=== PATIENT | male | born 1990 | race Caucasian/White ===

== ENCOUNTER → 2019-09-01 | Outpatient (CLI) | payer OTHER ==
[2019-09-01 10:28] LABS: BASOPHILS % (AUTO) 0 % (0-10); EOSINOPHILS % (AUTO) 1 % (0-10); HEMATOCRIT 42 % (40-54); HEMOGLOBIN 15.1 G/DL (13.3-17.7); LYMPHOCYTES # (AUTO) 2.9 X 10^3 (1.0-4.0); LYMPHOCYTES % (AUTO) 53 % (12-44); MEAN CORPUSCULAR HEMOGLOBIN 28 PG (25-34); MEAN CORPUSCULAR HGB CONC 36 G/DL (32-36); MEAN CORPUSCULAR VOLUME 80 FL (80-99); MEAN PLATELET VOLUME 10.4 FL (7.4-10.4); MONOCYTES # (AUTO) 0.4 X 10^3 (0.0-1.0); MONOCYTES % (AUTO) 7 % (0-12); NEUTROPHILS # (AUTO) 2.2 X 10^3 (1.8-7.8); NEUTROPHILS % (AUTO) 40 % (42-75); PLATELET COUNT 240 10^3/uL (130-400); RED CELL DISTRIBUTION WIDTH 14.6 % (10.0-14.5); WHITE BLOOD COUNT 5.5 10^3/uL (4.3-11.0)
[2019-09-01 10:46] LABS: ALANINE AMINOTRANSFERASE 29 U/L (0-55); ALBUMIN 4.4 GM/DL (3.2-4.5); ALKALINE PHOSPHATASE 70 U/L (40-136); BILIRUBIN,TOTAL 0.5 MG/DL (0.1-1.0); BUN/CREATININE RATIO 16; CALCIUM 9.6 MG/DL (8.5-10.1); CARBON DIOXIDE 19 MMOL/L (21-32); CHLORIDE 105 MMOL/L (98-107); CREATININE SERUM 0.82 MG/DL (0.60-1.30); GFR ESTIMATED > 60; GLUCOSE 98 MG/DL (70-105); POTASSIUM 4.3 MMOL/L (3.6-5.0); SODIUM 137 MMOL/L (135-145); TOTAL PROTEIN 7.4 GM/DL (6.4-8.2)
[2019-09-01 22:35] LABS: HEPATITIS C ANTIBODY C Non-Reactive (Non-Reactive)
== END ==
LOC: LAB 10:00
PROVIDERS: ATTEND Physician Assistant
DX: L40.0 Psoriasis vulgaris (principal); Z79.899 Other long term (current) drug therapy
CPT/HCPCS: 36415; 80053; 80074; 85025; 86480

== ENCOUNTER → 2020-02-29 | Outpatient (CLI) | payer OTHER | LOC: LAB 16:46 | PROVIDERS: ATTEND Physician Assistant | DX: L40.0 Psoriasis vulgaris (principal) | CPT/HCPCS: 36415; 86431 ==

== ENCOUNTER 2020-03-08 14:10 | Emergency (ER) | payer OTHER ==
[~2020-03-08] VITALS: Ht 175 cm; Wt 134.0 kg
--- NOTE | 2020-03-08 14:44 | ED Upper Extremity ---
General Stated Complaint: L HAND LAC Source: patient Exam Limitations: no limitations History of Present Illness Date Seen by Provider: Mar 08, 2020 Time Seen by Provider: 14:41 Initial Comments Patient got his left hand caught in the roller of a heavy gate just prior to arrival. He injured his hand thumb and index finger. No other trauma. Allergies and Home Medications Allergies Coded Allergies: Penicillins (Verified Allergy, Severe, SWELLING, 03/08/20) Patient Home Medication List Home Medication List Reviewed: Yes Review of Systems Constitutional: no symptoms reported Respiratory: no symptoms reported Cardiovascular: no symptoms reported Musculoskeletal: see HPI Skin: see HPI Past Ufcqjjf-Ubxvzs-Gjwdxs Hx Patient Social History Recent Foreign Travel: No Contact w/Someone Who Travel: No Physical Exam Vital Signs Vital Signs - First Documented 03/08/20 14:35 Temp 37.0 Pulse 111 Resp 16 B/P (MAP) 169/78 (108) Pulse Ox 98 O2 Delivery Room Air Capillary Refill : Height, Weight, BMI Height: '" Weight: lbs. oz. kg; BMI Method: General Appearance: WD/WN, no apparent distress Neck: supple Cardiovascular: regular rate, rhythm Respiratory: normal breath sounds Hand: Left (there is tenderness and swelling along the course of the index finger. There is a 1.5 similar laceration over the fat pad of the left index finger. There is tenderness over the distal phalanx of the left thumb. There is 100 percent subungual hematoma left thumb. Also tender over his second metacarpal) Neurologic/Psychiatric: alert, normal mood/affect Skin: normal color, warm/dry Procedures/Interventions Wound Location: Upper Extremities Other Wound Location Fat-pad left index finger Wound Length (cm): 2 Wound's Depth, Shape: sub Q Wound Explored: clean Betadine Prep?: Yes Anesthesia: 1% Lidocaine Volume Anesthetic (ccs): 5 Suture: Ethlion Suture Size: 5-0 Number of Sutures: 3 Sterile Dressing Applied?: Yes Nail Trepanation : Nail Trepanation Location: left thumb Method of Drainage: nail cauterized Sterile Dressing Applied: Yes Finger Splint: No Progress/Results/Core Measures Results/Orders My Orders Orders - JOSE CRUZ STACY MD Hand, Left, 3 Views (03/08/20 14:39) Ibuprofen Tablet (Motrin Tablet) (03/08/20 14:45) Lidocaine 1% Inj 20 Ml (Xylocaine 1% Inj (03/08/20 15:16) Medications Given in ED Current Medications Medications Dose Ordered Sig/Maliha Route Start Time Stop Time Status Last Admin Dose Admin Ibuprofen 800 mg ONCE ONCE PO 03/08/20 14:45 03/08/20 14:46 DC 03/08/20 14:47 800 MG Vital Signs/I&O 03/08/20 14:35 Temp 37.0 Pulse 111 Resp 16 B/P (MAP) 169/78 (108) Pulse Ox 98 O2 Delivery Room Air Departure Impression Primary Impression: Laceration of left index finger Additional Impressions: Subungual hematoma of left thumb Contusion of left hand Disposition: HOME, SELF-CARE Condition: Stable Departure-Patient Inst. Decision time for Depature: 15:50 Referrals: NO,LOCAL PHYSICIAN (PCP/Family) Primary Care Physician Patient Instructions: Bruising Under the Nail, Laceration Repair Add. Discharge Instructions: Tylenol or ibuprofen for pain. Keep hand elevated. Wear splint for comfort. Sutures out in 10-14 days JOSE CRUZ STACY MD Mar 08, 2020 14:43
[2020-03-08] MEDS ORDERED: IBUPROFEN 800 MG (MOTRIN) TAB PO ONE (14:45)
--- NOTE | 2020-03-08 15:00 | NUR ---
SEE DR RODRIGUEZ CHARTING FOR WOUND DESCRIPTION.
--- NOTE | 2020-03-08 15:00 | Diagnostic Imaging Report ---
HISTORY: Trauma to the left hand. TECHNIQUE: Three views of the left hand. COMPARISON: Wrist radiographs from 06/16/2005. FINDINGS: No acute fracture or dislocation is seen in the left hand. Alignment appears normal. Joint spaces are preserved. No radiopaque foreign body is seen. IMPRESSION: No acute osseous abnormality is seen in the left hand. Dictated by: Dictated on workstation # [id number]
[2020-03-08] MEDS ORDERED: LIDOCAINE 1% INJ 20 ML 20 ML VIAL ONE (15:16)
[2020-03-08 16:05] VITALS: BP 152/80
[2020-03-08] MEDS ORDERED: LIDOCAINE 1% INJ 20 ML 20 ML VIAL INJ ONE (16:15)
--- OUTSIDE RECORDS SUMMARY | 2020-03-08 17:10 | XMS REPORT ---
Author LOGAN Greenwood Organization Unknown Address Unknown Phone Unavailable Care Team Providers Care Shearer Screen Measurer And Trimmer Name Role Phone [facility] PP Unavailable Reason For Visit Chief Complaint R63.5 Social History Functional Status Vital Signs Results Problems Encounter Diagnosis No relevant problems exist. Encounters Encounter Diagnosis No relevant problems exist. Plan of Care Procedures * Completed , on 10/31/2010 12:00 AM Immunizations No immunizations administered or ordered. Hospital Course Hospital Discharge Instructions Allergies, Adverse Reactions, Alerts This section is community engagement representative of the current allergy information, at the time o f the CCD generation. In the case of regeneration of the CCD, the allergy inform ation may not reflect the state of known allergies at the time of the CCD's subj ect visit. * Penicillins causes unspecified. * Latex Allergy has not been assessed. * IV Contrast Allergy has not been assessed. Medication Medication reconciliation has not been performed.
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
--- OUTSIDE RECORDS SUMMARY | 2020-03-08 17:10 | XMS REPORT ---
Author LOGAN Greenwood Organization Unknown Address Unknown Phone Unavailable Care Team Providers Care Doctor Of Nursing Practice Name Role Phone [facility] PP Unavailable Reason For Visit Chief Complaint HIGH BP, CHEST PRESSURE Social History Functional Status Vital Signs Results Chemistry from 10/19/2017 11:41 PMSODIUM 138 MMOL/L (136-145 MMOL/L) POTASSIUM 3.6 MMOL/L (3.5-5.1 MMOL/L) CHLORIDE 102 MMOL/L (98-107 MMOL/L) TCO2 26.2 MMOL/L (21.0-32.0 MMOL/L) *ANION GAP 9.8 MMOL/L (8.0-16.0 MMOL/L) BUN 18 MG/DL (7-18 MG/DL) CREATININE 1.02 MG/DL (0.70-1.30 MG/DL) *BUN/CREATININE RATIO 17.6 H (9.1-17.0 ) GLUCOSE 129 MG/DL H (65-99 MG/DL) *GFR EST NON AFR MAURITIAN >90 ML/MIN (Reference Range: not available) *GFR EST AFR AMER >90 ML/MIN (Reference Range: not available) CALCIUM 9.2 MG/DL (8.5-10.1 MG/DL) BILIRUBIN TOTAL 0.30 MG/DL (0.20-1.00 MG/DL) TOTAL PROTEIN 7.7 GM/DL (6.4-8.2 GM/DL) ALBUMIN 4.0 GM/DL (3.4-5.0 GM/DL) *GLOBULIN 3.7 GM/DL H (2.3-3.5 GM/DL) *A/G RATIO 1.1 L (1.5-2.2 ) ALK PHOS 79 U/L (46-116 U/L) ALT (SGPT) 42 U/L (14-59 U/L) AST (SGOT) 26 U/L (15-37 U/L) TROPONIN-I <0.017 NG/ML (0.000-0.056 NG/ML) Hematology from 10/19/2017 11:41 PMWBC 7.8 X10e3/UL (3.6-11.2 X10e3/UL) RBC 5.49 X10e6/UL (4.06-5.63 X10e6/UL) HEMOGLOBIN 14.9 G/DL (12.5-16.3 G/DL) HEMATOCRIT 44.6 % (36.7-47.1 %) *MCV 81.3 FL (80.0-100.0 FL) *MCH 27.1 PG (27.0-33.0 PG) *MCHC 33.4 G/DL (32.0-36.0 G/DL) *RDW 14.2 % (12.3-17.0 %) PLATELET 270 X10e3/UL (159-386 X10e3/UL) *MPV 8.7 FL (7.4-10.4 FL) AUTOMATED DIFF PERFORMED (Reference Range: not available) SEGS 42.5 % (Reference Range: not available) *LYMPHOCYTES 50.1 % (Reference Range: not available) *MONOCYTES 5.7 % (Reference Range: not available) *EOSINOPHILS 0.8 % (Reference Range: not available) *BASOPHILS 0.9 % (Reference Range: not available) *ABSOLUTE NEUTROPHILS 3.30 X10e3/UL (1.80-7.80 X10e3/UL) *ABSOLUTE LYMPHOCYTES 3.90 X10e3/UL H (1.00-3.00 X10e3/UL) *ABSOLUTE MONOCYTES 0.40 X10e3/UL (0.30-1.00 X10e3/UL) *ABSOLUTE EOSINOPHILS 0.10 X10e3/UL (0.00-0.50 X10e3/UL) *ABSOLUTE BASOPHILS 0.10 X10e3/UL (0.00-0.20 X10e3/UL) Coagulation from 10/19/2017 11:43 PMD-DIMER 0.23 MG/L FEU (0.00-0.50 MG/L FEU) DX Radiology from 10/19/2017 11:23 PMCHEST 1 VIEW History: chest hpain Priors: None. Findings: The cardiac silhouette and pulmonary vasculature are within normal limits. There are no acute infiltrates or effusions. Impression: No acute cardiopulmonary disease. Electronically signed by: Eduardo Orozco Dictated: 10/20/2017 10:00 (Reference Range: not available) Problems Encounter Diagnosis No relevant problems exist. Encounters Encounter Diagnosis No relevant problems exist. Plan of Care Procedures * Completed , on 10/31/2010 12:00 AM Immunizations No immunizations administered or ordered. Hospital Course Hospital Discharge Instructions Allergies, Adverse Reactions, Alerts This section is lifeline representatives of the current allergy information, at the [...]
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
--- OUTSIDE RECORDS SUMMARY | 2020-03-08 17:10 | XMS REPORT ---
Author LOGAN Greenwood Organization Unknown Address Unknown Phone Unavailable Care Team Providers Care Expert Medical Writer Name Role Phone [facility] PP Unavailable Reason For Visit Chief Complaint MRI KNEE RIGHT W/O CONTRAST,RIGHT KNEE CONTUSION Social History Functional Status Vital Signs Results Problems Encounter Diagnosis No relevant problems exist. Encounters Encounter Diagnosis No relevant problems exist. Plan of Care Procedures * Completed , on 10/31/2010 12:00 AM Immunizations No immunizations administered or ordered. Hospital Course Hospital Discharge Instructions Allergies, Adverse Reactions, Alerts This section is practice representative of the current allergy information, at [...]
--- OUTSIDE RECORDS SUMMARY | 2020-03-08 17:10 | XMS REPORT ---
Author LOGAN Greenwood Organization Unknown Address Unknown Phone Unavailable Care Team Providers Care Globe Tester Name Role Phone [facility] PP Unavailable Reason For Visit Chief Complaint RT FOOT X RAY Social History Functional Status Vital Signs Results Problems Encounter Diagnosis No relevant problems exist. Encounters Encounter Diagnosis No relevant problems exist. Plan of Care Procedures * Completed , on 10/31/2010 12:00 AM Immunizations No immunizations administered or ordered. Hospital Course Hospital Discharge Instructions Allergies, Adverse Reactions, Alerts This section is eligibility services representative of the current allergy information, at the time o f the CCD generation. In the case of regeneration of the CCD, the allergy inform ation may not reflect the state of known allergies at the time of the CCD's subj ect visit. * Latex Allergy has not been assessed. * IV Contrast Allergy has not been assessed. Medication Medication reconciliation has not been performed.
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
--- OUTSIDE RECORDS SUMMARY | 2020-03-08 17:10 | XMS REPORT ---
Author LOGAN Greenwood Organization Unknown Address Unknown Phone Unavailable Care Team Providers Care Rn Cardiovascular Name Role Phone [facility] PP Unavailable Reason For Visit Chief Complaint R63.5 Social History Functional Status Vital Signs Results Problems Encounter Diagnosis No relevant problems exist. Encounters Encounter Diagnosis No relevant problems exist. Plan of Care Procedures * Completed , on 10/31/2010 12:00 AM Immunizations No immunizations administered or ordered. Hospital Course Hospital Discharge Instructions Allergies, Adverse Reactions, Alerts This section is national account representative of the current allergy information, at [...]
--- OUTSIDE RECORDS SUMMARY | 2020-03-08 17:10 | XMS REPORT ---
Author LOGAN Greenwood Organization Unknown Address Unknown Phone Unavailable Care Team Providers Care Filler Machine Operator Name Role Phone [facility] PP Unavailable Reason For Visit Chief Complaint PRE EMPLOYMENT Social History Functional Status Vital Signs Results Problems Encounter Diagnosis No relevant problems exist. Encounters Encounter Diagnosis No relevant problems exist. Plan of Care Procedures * Completed , on 10/31/2010 12:00 AM Immunizations No immunizations administered or ordered. Hospital Course Hospital Discharge Instructions Allergies, Adverse Reactions, Alerts This section is b2b outside sales representative of the current allergy information, at [...]
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
--- OUTSIDE RECORDS SUMMARY | 2020-03-08 17:11 | XMS REPORT ---
Author Author Dejon Fernandez Organization [facility] Address [address] [place] [address] Care Team Providers Care Halal Butcher Name Role Phone Rebecca Jon Unavailable PROBLEMS Type Condition ICD9-CM Code YJP49-CA Code Onset Dates Condition S tatus SNOMED Code Problem Asthma J45.909 Active [id number] ALLERGIES No Information ENCOUNTERS Encounter Location Date Diagnosis [address] [id number] 16 Mar, [address] [id number] 16 Nov, Sore throat J02.9 and Upper respiratory tract infection, unspecified type J06.[address] [id number] 16 Oct, [address] [id number] 16 Oct, Unexplained weight gain R63.5 and High blood pressure (not hypertension) R03.[address] [id number] 16 Oct, [address] [id number] 16 Aug, Arch pain of right foot M79.671 [address] [place], [place] [id number] 16 May, [facility] [address] [place], [place] [id number] 16 May, Viral syndrome B34.[address] [id number] 16 May, [address] [id number] 16 May, [address] [place], [place] [id number] 16 Mar, [address] [id number] 16 Mar, Carpal tunnel syndrome of right wrist G56.01 and Sleep apnea, unspecified type G47.30 [facility] [address] [place], [place] [id number] 16 Mar, [facility] [address] [place], [place] [id number] 16 Jul, Laceration of right thumb without foreign body without damage to nail, initial encounter S61.011A [facility] [address] [place], [place] [id number] 16 Jul, Laceration of right thumb without foreign body without damage to nail, initial encounter S61.011A [facility] [address] [place], [place] [id number] 16 Jul, Puncture wound of foot, right S91.331A and High blood pressure (not hypertension) R03.0 [facility] [address] [place], [place] [id number] 16 May, Ankle sprain 845.00 IMMUNIZATIONS No Known Immunizations SOCIAL HISTORY Never Assessed REASON FOR VISIT Rx denied Lisinopril PLAN OF CARE VITAL SIGNS MEDICATIONS Unknown Medications RESULTS No Results PROCEDURES No Known procedures INSTRUCTIONS MEDICATIONS ADMINISTERED No Known Medications MEDICAL (GENERAL) HISTORY Type Description Date Medical History Asthma
--- OUTSIDE RECORDS SUMMARY | 2020-03-08 17:11 | XMS REPORT ---
Author Author Dejon Fernandez [facility] Address [address] [place] [address] Care Team Providers Care Director Speech Name Role Phone Jon Fernandez Unavailable PROBLEMS Type Condition ICD9-CM Code KRI85-EU Code Onset Dates Condition S tatus SNOMED Code Problem Asthma J45.909 Active [id number] ALLERGIES No Information SOCIAL HISTORY Never Assessed PLAN OF CARE VITAL SIGNS MEDICATIONS Unknown Medications RESULTS No Results PROCEDURES No Known procedures IMMUNIZATIONS No Known Immunizations MEDICAL (GENERAL) HISTORY Type Description Date Medical History Asthma
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
--- OUTSIDE RECORDS SUMMARY | 2020-03-08 17:11 | XMS REPORT ---
Author Author Dejon Fernandez [facility] Address [address] [place] [address] Care Team Providers Care Family Consumer Science Fcs Teacher Name Role Phone Jon Fernandez Unavailable PROBLEMS Type Condition ICD9-CM Code AUB31-NG Code Onset Dates Condition S tatus SNOMED Code Problem Asthma J45.909 Active [id number] ALLERGIES No Information SOCIAL HISTORY Never Assessed PLAN OF CARE VITAL SIGNS MEDICATIONS Unknown Medications RESULTS No Results PROCEDURES No Known procedures IMMUNIZATIONS No Known Immunizations MEDICAL (GENERAL) HISTORY Type Description Date Medical History Asthma
--- OUTSIDE RECORDS SUMMARY | 2020-03-08 17:11 | XMS REPORT ---
Author Author Dejon Fernandez Organization [facility] Address [address] [place] [address] Care Team Providers Care Retail Advisor Name Role Phone Rebecca Jon Unavailable PROBLEMS Type Condition ICD9-CM Code DBS88-RE Code Onset Dates Condition S tatus SNOMED Code Problem Asthma J45.909 Active [id number] ALLERGIES Substance Reaction Event Type Date Status Penicillin Unknown Drug Allergy Oct, Active ENCOUNTERS Encounter Location Date Diagnosis [facility] [place], [place] [id number] 16 Feb, [facility] [address] [place], [place] [address] 16 Oct, Unexplained weight gain R63.5 and High blood pressure (not hypertension) R03.0 [facility] [address] [place], [place] [id number] 16 Oct, [facility] [address] [place], [place] [id number] 16 Aug, Arch pain of right foot M79.671 [address] [place], [place] [id number] 16 May, [facility] [address] [place], [place] [address] 16 May, Viral syndrome B34.9 [address] [place], [place] [address] 16 May, [facility] [address] [place], [place] [address] 16 May, [facility] [address] [place], [place] [id number] 16 Mar, [facility] [address] [place], [place] [id number] 16 Mar, Carpal tunnel syndrome of right wrist G56.01 and Sleep apnea, unspecified type G47.30 [facility] [address] [place], [place] [id number] 16 Mar, [facility] [address] [place], [place] [address] 16 Jul, Laceration of right thumb without foreign body without damage to nail, initial encounter S61.011A [facility] [address] [place], [place] [address] 16 Jul, Laceration of right thumb without foreign body without damage to nail, initial encounter S61.011A [facility] [address] [place], [place] [address] 16 Jul, Puncture wound of foot, right S91.331A and High blood pressure (not hypertension) R03.0 [facility] [address] [place], [place] [address] 16 May, Ankle sprain 845.00 IMMUNIZATIONS No Known Immunizations SOCIAL HISTORY Never Assessed REASON FOR VISIT ER Follow up for hyptertension and chest pain,102 fever. Last meds at 3am. Pt wa s in [facility] ER this Thursday with elevated BP, was started on Lisinopril. He didn't take last night due to fever and headaches after check with ER again. The ER ph ysician is suggesting he be tested for Mary's, they felt he had alot of sympt oms. Today he still has a fever, light headedness, dizziness and achiness. PLAN OF CARE Activity Details Follow Up 3 Months Reason:follow-up af ter endocrinological visits VITAL SIGNS Weight 308 lbs 2017-10-23 Height 69 in 2017-10-23 Heart Rate 124 /min 2017-10-23 Respiratory Rate 24 /min 2017-10-23 Temperature 100.4 degrees Fahrenheit 2017-10-23 Oximetry 98 % 2017-10-23 BMI 45.48 kg/m2 2017-10-23 Blood pressure systolic 134 mm Hg 2017-10-23 Blood pressure diastolic 85 mm Hg 2017-10-23 MEDICATIONS Medication Instructions Dosage Frequency Start Date End Date Duration S tatus Lisinopril 5 MG Orally Once a day 1 tablet 24h Active Tamiflu 75 MG Orally Twice a day 1 capsule 12h Oct, 5 day(s) Active Zofran ODT 4 MG Orally every 4 hrs/prn nausea and vomiti ng 1 tablet on the tongue and allow to dissolve Oct, Active Lisinopril 5 MG Orally Once a day 1 tablet 24h Oct, Active Naprosyn 660 24h Active RESULTS No Results PROCEDURES No Known procedures INSTRUCTIONS MEDICATIONS ADMINISTERED No Known Medications MEDICAL (GENERAL) HISTORY Type Description Date Medical History Asthma
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
--- OUTSIDE RECORDS SUMMARY | 2020-03-08 17:11 | XMS REPORT ---
Author Author Dejon Fernandez [facility] Address [address] [place] [address] Care Team Providers Care Forest Engineer Name Role Phone Jon Fernandez Unavailable PROBLEMS Type Condition ICD9-CM Code [id number] Code Onset Dates Condition S tatus SNOMED Code Problem Asthma J45.909 Active [id number] ALLERGIES Substance Reaction Event Type Date Status Penicillin Unknown Drug Allergy Aug, Active SOCIAL HISTORY Never Assessed PLAN OF CARE Activity Details Follow Up 2 Months Reason:follow-up fo r right arch pain VITAL SIGNS Weight 307.2 lbs 2017-09-08 Height 69 in 2017-09-08 Heart Rate 88 /min 2017-09-08 Respiratory Rate 20 /min 2017-09-08 BMI 45.36 kg/m2 2017-09-08 Blood pressure systolic 160 mm Hg 2017-09-08 Blood pressure diastolic 85 mm Hg 2017-09-08 MEDICATIONS Unknown Medications RESULTS No Results PROCEDURES No Known procedures IMMUNIZATIONS No Known Immunizations MEDICAL (GENERAL) HISTORY Type Description Date Medical History Asthma
--- OUTSIDE RECORDS SUMMARY | 2020-03-08 17:11 | XMS REPORT ---
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 Name Role Phone Amelia Arboleda Unavailable PROBLEMS Type Condition ICD9-CM Code [id number] Code Onset Dates Condition S tatus SNOMED Code Problem Asthma J45.909 Active [id number] ALLERGIES Substance Reaction Event Type Date Status Penicillin Unknown Drug Allergy Nov, Active ENCOUNTERS Encounter Location Date Diagnosis [address] [id number] 16 Feb, [facility] [address] [place], [place] [id number] 16 Nov, Sore throat J02.9 and Upper respiratory tract infection, unspecified type J06.9 [facility] [address] [place], [place] [id number] 16 Oct, [facility] [address] [place], [place] [id number] 16 Oct, Unexplained weight gain R63.5 and High blood pressure (not hypertension) R03.0 [address] [place], [place] [id number] 16 Oct, [facility] [address] [place], [place] [id number] 16 Aug, Arch pain of right foot M79.671 [address] [place], [place] [id number] 16 May, [facility] [address] [place], [place] [id number] 16 May, Viral syndrome B34.9 [address] [place], [place] [id number] 16 May, [address] [place], [place] [id number] 16 May, [address] [place], [place] [id number] 16 Mar, [facility] [address] [place], [place] [id number] 16 Mar, Carpal tunnel syndrome of right wrist G56.01 and Sleep apnea, unspecified type G47.30 [facility] [address] [place], [place] [id number] 16 Mar, [facility] [address] [place], [place] [id number] 16 Jul, Laceration of right thumb without foreign body without damage to nail, initial encounter S61.011A [facility] [address] [place], [place] [id number] 16 Jul, Laceration of right thumb without foreign body without damage to nail, initial encounter S61.011A [facility] [address] [place], [place] [id number] 16 Jul, Puncture wound of foot, right S91.331A and High blood pressure (not hypertension) R03.0 [facility] [address] [place], [place] [id number] 16 May, Ankle sprain 845.00 IMMUNIZATIONS No Known Immunizations SOCIAL HISTORY Never Assessed REASON FOR VISIT COUGH,RUNNY NOSE,TIGHT CHEST PLAN OF CARE Activity Details Follow Up F/U if symptoms worsen or pe rsist. Reason: VITAL SIGNS Weight 279 lbs 2017-11-30 Height 69 in 2017-11-30 Heart Rate 98 /min 2017-11-30 Respiratory Rate 20 /min 2017-11-30 Temperature 98,7 degrees Fahrenheit 2017-11-30 Oximetry 98 % 2017-11-30 BMI 41.20 kg/m2 2017-11-30 Blood pressure systolic 140 mm Hg 2017-11-30 Blood pressure diastolic 78 mm Hg 2017-11-30 MEDICATIONS Medication Instructions Dosage Frequency Start Date End Date Duration S tatus Zithromax Z-Adonis 250 MG Orally Once a day 2 tablets on the first day, then 1 tablet daily for 4 days 24h Nov, 5 day(s) Acti ve Lisinopril 5 MG Orally Once a day 1 tablet 24h Oct, Active Lisinopril 5 MG Orally Once a day 1 tablet 24h Active Zofran ODT 4 MG Orally every 4 hrs/prn nausea and vomiti ng 1 tablet on the tongue and allow to dissolve Oct, Active Naprosyn 660 24h Active Tamiflu 75 MG Orally Twice a day 1 capsule 12h Oct, 5 day(s) Active RESULTS Name Result Date Reference Range SMC Rapid Strep 2017-11-30 Result NEG NORMAL - NEG PROCEDURES Procedure Date Ordered Result Body Site STREP A ASSAY W/OPTIC November 30, 2017 INSTRUCTIONS MEDICATIONS ADMINISTERED No Known Medications MEDICAL (GENERAL) HISTORY Type Description Date Medical History Asthma
== END 2020-03-08 16:05 | disposition home or self-care (01) ==
LOC: EDUNIT# 14:10 → ER 14:14
DX: S61.211A Laceration without foreign body of left index finger without damage to nail, initial encounter (principal); S60.112A Contusion of left thumb with damage to nail, initial encounter; S60.222A Contusion of left hand, initial encounter; Z88.0 Allergy status to penicillin; W23.1XXA Caught, crushed, jammed, or pinched between stationary objects, initial encounter
CPT/HCPCS: 12001; 73130

== ENCOUNTER → 2020-07-18 | Outpatient (CLI) | payer OTHER ==
[2020-07-18 09:21] LABS: BASOPHILS # (AUTO) 0.1 10^3/uL (0.0-0.1); BASOPHILS % (AUTO) 1 % (0-10); EOSINOPHILS # (AUTO) 0.1 10^3/uL (0.0-0.3); EOSINOPHILS % (AUTO) 1 % (0-10); HEMATOCRIT 42 % (40-54); HEMOGLOBIN 14.4 g/dL (13.3-17.7); LYMPHOCYTES # (AUTO) 3.1 10^3/uL (1.0-4.0); LYMPHOCYTES % (AUTO) 51 % (12-44); MEAN CORPUSCULAR HEMOGLOBIN 29 pg (25-34); MEAN CORPUSCULAR HGB CONC 35 g/dL (32-36); MEAN CORPUSCULAR VOLUME 83 fL (80-99); MEAN PLATELET VOLUME 10.3 fL (9.0-12.2); MONOCYTES # (AUTO) 0.5 10^3/uL (0.0-1.0); MONOCYTES % (AUTO) 8 % (0-12); NEUTROPHILS # (AUTO) 2.3 10^3/uL (1.8-7.8); NEUTROPHILS % (AUTO) 38 % (42-75); PLATELET COUNT 253 10^3/uL (130-400)
[2020-07-18 09:39] LABS: ALBUMIN 4.1 GM/DL (3.2-4.5); CHLORIDE 104 MMOL/L (98-107); POTASSIUM 4.2 MMOL/L (3.6-5.0); SODIUM 137 MMOL/L (135-145)
[2020-07-18 09:40] LABS: CALCIUM 8.9 MG/DL (8.5-10.1)
[2020-07-18 09:41] LABS: GLUCOSE 104 MG/DL (70-105); TOTAL PROTEIN 7.3 GM/DL (6.4-8.2)
[2020-07-18 09:42] LABS: CARBON DIOXIDE 22 MMOL/L (21-32)
[2020-07-18 09:43] LABS: BILIRUBIN,TOTAL 0.4 MG/DL (0.1-1.0)
[2020-07-18 09:45] LABS: ALKALINE PHOSPHATASE 57 U/L (40-136); CREATININE SERUM 0.86 MG/DL (0.60-1.30); GFR ESTIMATED > 60
[2020-07-18 09:46] LABS: BUN/CREATININE RATIO 19
[2020-07-18 09:48] LABS: ALANINE AMINOTRANSFERASE 30 U/L (0-55)
== END ==
LOC: LAB 08:48
PROVIDERS: ATTEND Nurse Practitioner Family
DX: L40.0 Psoriasis vulgaris (principal); Z79.899 Other long term (current) drug therapy
CPT/HCPCS: 36415; 80053; 85025; 86480

== ENCOUNTER → 2021-08-09 | Outpatient (CLI) | payer BC, OTHER | LOC: LAB 12:23 | PROVIDERS: ATTEND Internal Medicine | DX: I10 Essential (primary) hypertension (principal); E11.65 Type 2 diabetes mellitus with hyperglycemia | CPT/HCPCS: 36415; 82043; 83036; 84443 ==

== ENCOUNTER → 2022-01-21 | Outpatient (CLI) | payer BC | LOC: LAB 12:30 | PROVIDERS: ATTEND Internal Medicine | DX: Z53.9 Procedure and treatment not carried out, unspecified reason (principal) ==

== ENCOUNTER → 2022-04-28 | Outpatient (CLI) | payer BC ==
[2022-04-28 13:02] LABS: HEMATOCRIT 44 % (40-54); HEMOGLOBIN 15.2 g/dL (13.3-17.7); MEAN CORPUSCULAR HEMOGLOBIN 28 pg (25-34); MEAN CORPUSCULAR HGB CONC 35 g/dL (32-36); MEAN CORPUSCULAR VOLUME 82 fL (80-99); MEAN PLATELET VOLUME 10.9 fL (9.0-12.2); PLATELET COUNT 250 10^3/uL (130-400); WHITE BLOOD COUNT 7.2 10^3/uL (4.3-11.0)
[2022-04-28 13:23] LABS: ALBUMIN 4.3 GM/DL (3.2-4.5); CHLORIDE 104 MMOL/L (98-107); SODIUM 140 MMOL/L (135-145)
[2022-04-28 13:24] LABS: CALCIUM 9.8 MG/DL (8.5-10.1)
[2022-04-28 13:25] LABS: TRIGLYCERIDES 488 MG/DL (<150)
[2022-04-28 13:26] LABS: GLUCOSE 94 MG/DL (70-105); TOTAL PROTEIN 7.6 GM/DL (6.4-8.2)
[2022-04-28 13:27] LABS: CARBON DIOXIDE 24 MMOL/L (21-32)
[2022-04-28 13:28] LABS: BILIRUBIN,TOTAL 0.4 MG/DL (0.1-1.0)
[2022-04-28 13:29] LABS: ALKALINE PHOSPHATASE 56 U/L (40-136)
[2022-04-28 13:30] LABS: CHOLESTEROL 238 MG/DL (< 200); GFR ESTIMATED 119
[2022-04-28 13:31] LABS: BUN/CREATININE RATIO 11
[2022-04-28 13:32] LABS: HDL CHOLESTEROL 31 MG/DL (40-60)
[2022-04-28 13:33] LABS: ALANINE AMINOTRANSFERASE 36 U/L (0-55)
== END ==
LOC: LAB 12:31
PROVIDERS: ATTEND Internal Medicine
DX: Z00.00 Encounter for general adult medical examination without abnormal findings (principal); E11.65 Type 2 diabetes mellitus with hyperglycemia; E78.00 Pure hypercholesterolemia, unspecified; E78.1 Pure hyperglyceridemia
CPT/HCPCS: 36415; 80053; 80061; 83036; 84443; 85027

== ENCOUNTER 2022-07-15 08:21 | Outpatient (RCR) | payer BC ==
[2022-07-15 08:52] LABS: HEMATOCRIT 45 % (40-54); HEMOGLOBIN 15.4 g/dL (13.3-17.7); MEAN CORPUSCULAR HEMOGLOBIN 28 pg (25-34); MEAN CORPUSCULAR HGB CONC 34 g/dL (32-36); MEAN CORPUSCULAR VOLUME 83 fL (80-99); MEAN PLATELET VOLUME 10.5 fL (9.0-12.2); PLATELET COUNT 267 10^3/uL (130-400)
[2022-07-15 08:55] LABS: BILIRUBIN,URINE NEGATIVE (NEGATIVE); CLARITY,URINE CLEAR; COLOR,URINE YELLOW; GLUCOSE, URINE (UA) NEGATIVE (NEGATIVE); KETONES,URINE NEGATIVE (NEGATIVE); LEUKOCYTE ESTERASE ,URINE NEGATIVE (NEGATIVE); NITRITE,URINE NEGATIVE (NEGATIVE); PROTEIN,URINE NEGATIVE (NEGATIVE)
[2022-07-15 09:04] LABS: BACTERIA,URINE NEGATIVE /HPF; WBC,URINE RARE /HPF
[2022-07-15 09:11] LABS: ERYTHROCYTE SEDIMENTATION RATE 3 MM/HR (0-15)
[2022-07-15 09:32] LABS: ALANINE AMINOTRANSFERASE 37 U/L (0-55); ALBUMIN 4.3 GM/DL (3.2-4.5); ALKALINE PHOSPHATASE 61 U/L (40-136); BILIRUBIN,TOTAL 0.3 MG/DL (0.1-1.0); BUN/CREATININE RATIO 17; CALCIUM 9.6 MG/DL (8.5-10.1); CARBON DIOXIDE 21 MMOL/L (21-32); CHLORIDE 105 MMOL/L (98-107); CHOLESTEROL 267 MG/DL (< 200); CREATININE SERUM 0.82 MG/DL (0.60-1.30); GFR ESTIMATED 122; GLUCOSE 102 MG/DL (70-105); HDL CHOLESTEROL 30 MG/DL (40-60); POTASSIUM 4.2 MMOL/L (3.6-5.0); SODIUM 141 MMOL/L (135-145); TOTAL PROTEIN 7.4 GM/DL (6.4-8.2); TRIGLYCERIDES 444 MG/DL (<150)
[2022-07-15 09:53] LABS: FREE T4 (FREE THYROXINE) 0.89 NG/DL (0.70-1.48)
== END 2022-07-30 | disposition home or self-care (01) ==
LOC: LAB 08:21
PROVIDERS: ATTEND Internal Medicine
DX: E78.5 Hyperlipidemia, unspecified (principal); R10.9 Unspecified abdominal pain; R19.7 Diarrhea, unspecified
CPT/HCPCS: 36415; 80053; 80061; 81000; 82607; 82746; 82784; 83036; 83516; 83520; 84439; 84443; 85027; 85652; 86141